=== PATIENT | male | born 1990 | race Caucasian/White ===

== ENCOUNTER 2017-07-05 21:10 | Emergency (ER) | payer OTHER ==
[~2017-07-05] VITALS: Ht 180.3 cm; Wt 68.0 kg
[2017-07-05] MEDS ORDERED: WELLBUTRIN SR150 MG PO (21:16)
[2017-07-05] MEDS ORDERED: IBUPROFEN 800800 M1 PO (22:37)
[2017-07-05] MEDS ORDERED: CLEOCIN HCL150 M1 PO (22:37)
[2017-07-05 22:48] VITALS: BP 134/67
== END 2017-07-05 22:48 | disposition home or self-care (01) ==
LOC: M.ERS 21:10
DX: S61.216A Laceration without foreign body of right little finger without damage to nail, initial encounter (principal); Z91.041 Radiographic dye allergy status; Z91.018 Allergy to other foods; W20.8XXA Other cause of strike by thrown, projected or falling object, initial encounter; Y93.89 Activity, other specified; Y92.89 Other specified places as the place of occurrence of the external cause; Y99.0 Civilian activity done for income or pay

== ENCOUNTER 2018-03-13 06:29 | Emergency (ER) | payer OTHER ==
[~2018-03-13] VITALS: Ht 177.8 cm; Wt 72.6 kg
[~2018-03-13 06:29] MED LIST: CLEOCIN HCL150 M1 PO; IBUPROFEN 800800 M1 PO; WELLBUTRIN SR150 MG PO
[2018-03-13 07:41] VITALS: BP 127/79
== END 2018-03-13 07:42 | disposition home or self-care (01) ==
LOC: M.ERS 06:29
DX: J02.0 Streptococcal pharyngitis (principal); F17.210 Nicotine dependence, cigarettes, uncomplicated; Z91.041 Radiographic dye allergy status; Z91.018 Allergy to other foods

== ENCOUNTER 2018-04-04 12:31 | Emergency (ER) | payer OTHER ==
[~2018-04-04] VITALS: Ht 177.8 cm; Wt 72.6 kg
[2018-04-04 13:37] LABS: ABSOLUTE BASOPHILS 0.1 thou/uL (0.0-0.2); ABSOLUTE EOSINOPHILS 0.3 thou/uL (0.0-0.7); ABSOLUTE LYMPHOCYTES 2.3 thou/uL (0.8-5.3); ABSOLUTE MONOCYTES 0.5 thou/uL (0.0-1.2); ABSOLUTE NEUTROPHILS 5.8 thou/uL (1.6-8.1); BASOPHILS 1.3 %; EOSINOPHILS 2.9 %; LYMPHOCYTES 25.6 %; MCH 28.5 pg (26.0-34.0); MCHC 33.3 g/dL (28.0-37.0); MCV 85.4 fL (80.0-100.0); MONOCYTES 5.1 %; MPV 7.7 fl. (7.2-11.1); NUCLEATED RBCS 0 /100WBC; PLATELET COUNT* 382 thou/uL (150-400); POLYS 65.1 %; RBC 5.27 mil/uL (4.50-6.00); RDW-CV 13.7 % (10.5-14.5); WBC 8.9 thou/uL (4.0-11.0)
[2018-04-04 13:56] LABS: CALCIUM 9.6 mg/dL (8.5-10.1); CREATININE 0.9 mg/dL (0.6-1.3); POTASSIUM 4.2 mmol/L (3.5-5.1)
[2018-04-04 14:00] LABS: ALBUMIN 4.7 g/dL (3.4-5.0); TOTAL BILIRUBIN 0.7 mg/dL (<0.1-1.0)
[2018-04-04 14:01] LABS: URINE BILIRUBIN NEGATIVE (Negative); URINE BLOOD NEGATIVE (Negative); URINE CLARITY CLEAR; URINE COLOR YELLOW; URINE GLUCOSE-RANDOM NEGATIVE (Negative); URINE KETONES NEGATIVE (Negative); URINE LEUKOCYTES-REFLEX NEGATIVE (Negative); URINE NITRITE-REFLEX NEGATIVE (Negative); URINE PROTEIN NEGATIVE (Negative); URINE UROBILINOGEN 0.2 E.U./dl (0.2-1.0)
[2018-04-04 14:16] LABS: TOTAL PROTEIN 8.4 g/dL (6.4-8.2)
[2018-04-04] MEDS ORDERED: CIPRO500 MG PO (15:21)
[2018-04-04 15:35] VITALS: BP 129/61
== END 2018-04-04 15:36 | disposition home or self-care (01) ==
LOC: M.ERS 12:31
PROVIDERS: Nurse Practitioner Family
DX: K52.9 Noninfective gastroenteritis and colitis, unspecified (principal); F17.210 Nicotine dependence, cigarettes, uncomplicated; Z91.041 Radiographic dye allergy status; Z91.018 Allergy to other foods

== ENCOUNTER 2018-11-27 20:40 | Emergency (ER) | payer OTHER ==
[~2018-11-27] VITALS: Ht 177.8 cm; Wt 70.3 kg
[~2018-11-27 20:40] MED LIST changes: +CIPRO500 MG PO
[2018-11-27 22:17] LABS: ABSOLUTE BASOPHILS 0.2 thou/uL (0.0-0.2); ABSOLUTE LYMPHOCYTES 3.4 thou/uL (0.8-5.3); ABSOLUTE MONOCYTES 0.5 thou/uL (0.0-1.2); ABSOLUTE NEUTROPHILS 6.6 thou/uL (1.6-8.1); BASOPHILS 1.5 %; EOSINOPHILS 8.7 %; HEMATOCRIT 40.5 % (42.0-52.0); HEMOGLOBIN 13.3 gm/dL (14.0-18.0); LYMPHOCYTES 29.2 %; MCH 28.2 pg (26.0-34.0); MCHC 32.8 g/dL (28.0-37.0); MONOCYTES 4.3 %; MPV 7.6 fl. (7.2-11.1); NUCLEATED RBCS 0 /100WBC; PLATELET COUNT* 405 thou/uL (150-400); POLYS 56.3 %; RBC 4.71 mil/uL (4.50-6.00); RDW-CV 14.2 % (10.5-14.5); WBC 11.7 thou/uL (4.0-11.0)
[2018-11-27 22:27] LABS: CREATININE 0.7 mg/dL (0.6-1.3)
[2018-11-27] MEDS ORDERED: TRAMADOL 50 MG50 MG PO (22:49)
[2018-11-27] MEDS ORDERED: BACTRIM DS TAB1 EACH PO (22:49)
[2018-11-28 00:56] VITALS: BP 128/66
== END 2018-11-28 00:35 | disposition home or self-care (01) ==
LOC: M.ERS 20:40
PROVIDERS: Nurse Practitioner Psychiatric/Mental Health
DX: S69.92XA Unspecified injury of left wrist, hand and finger(s), initial encounter (principal); L03.012 Cellulitis of left finger; F17.210 Nicotine dependence, cigarettes, uncomplicated; Z91.041 Radiographic dye allergy status; Z88.8 Allergy status to other drugs, medicaments and biological substances; W22.8XXA Striking against or struck by other objects, initial encounter; Y92.89 Other specified places as the place of occurrence of the external cause; Y93.89 Activity, other specified; Y99.8 Other external cause status

== ENCOUNTER 2019-05-13 08:21 | Emergency (ER) | payer OTHER ==
[~2019-05-13] VITALS: Ht 180.3 cm; Wt 72.6 kg
[~2019-05-13 08:21] MED LIST changes: +BACTRIM DS TAB1 EACH PO; +TRAMADOL 50 MG50 MG PO
[2019-05-13] MEDS ORDERED: NORCO 5-325 TA1 EAC1 PO (09:22)
[2019-05-13 10:28] VITALS: BP 121/52
== END 2019-05-13 10:28 | disposition home or self-care (01) ==
LOC: M.ERS 08:21
DX: S92.351A Displaced fracture of fifth metatarsal bone, right foot, initial encounter for closed fracture (principal); Z90.49 Acquired absence of other specified parts of digestive tract; Z91.041 Radiographic dye allergy status; Z91.018 Allergy to other foods; W18.39XA Other fall on same level, initial encounter; Y93.89 Activity, other specified; Y92.89 Other specified places as the place of occurrence of the external cause; Y99.8 Other external cause status

== ENCOUNTER 2019-05-28 17:17 | Emergency (ER) | payer OTHER ==
[~2019-05-28] VITALS: Ht 180.3 cm; Wt 72.6 kg
[~2019-05-28 17:17] MED LIST changes: +NORCO 5-325 TA1 EAC1 PO
[2019-05-28] MEDS ORDERED: IBU800 MG PO (19:25)
[2019-05-28] MEDS ORDERED: NORCO 5-325 TA1 EAC1 PO (19:25)
[2019-05-28 19:43] VITALS: BP 117/86
== END 2019-05-28 19:29 | disposition home or self-care (01) ==
LOC: M.ERS 17:17
DX: S92.354A Nondisplaced fracture of fifth metatarsal bone, right foot, initial encounter for closed fracture (principal); F17.210 Nicotine dependence, cigarettes, uncomplicated; Z90.49 Acquired absence of other specified parts of digestive tract; Z91.018 Allergy to other foods; Z91.041 Radiographic dye allergy status; X58.XXXA Exposure to other specified factors, initial encounter; Y93.89 Activity, other specified; Y92.89 Other specified places as the place of occurrence of the external cause; Y99.8 Other external cause status

== ENCOUNTER 2019-11-21 10:34 | Emergency (ER) | payer OTHER ==
[~2019-11-21] VITALS: Ht 177.8 cm; Wt 72.6 kg
[~2019-11-21 10:34] MED LIST changes: +IBU800 MG PO
[2019-11-21 13:10] LABS: ABSOLUTE BASOPHILS 0.2 thou/uL (0.0-0.2); ABSOLUTE LYMPHOCYTES 1.7 thou/uL (0.8-5.3); ABSOLUTE MONOCYTES 0.8 thou/uL (0.0-1.2); ABSOLUTE NEUTROPHILS 14.2 thou/uL (1.6-8.1); BASOPHILS 0.9 %; EOSINOPHILS 0.3 %; HEMATOCRIT 39.9 % (42.0-52.0); HEMOGLOBIN 13.4 gm/dL (14.0-18.0); LYMPHOCYTES 10.2 %; MCH 29.3 pg (26.0-34.0); MCHC 33.7 g/dL (28.0-37.0); MCV 87.1 fL (80.0-100.0); MONOCYTES 4.5 %; MPV 7.5 fl. (7.2-11.1); NUCLEATED RBCS 0 /100WBC; PLATELET COUNT* 352 thou/uL (150-400); POLYS 84.1 %; RBC 4.58 mil/uL (4.50-6.00); RDW-CV 13.5 % (10.5-14.5); WBC 16.9 thou/uL (4.0-11.0)
[2019-11-21 13:18] LABS: CALCIUM 8.9 mg/dL (8.5-10.1); CREATININE 0.9 mg/dL (0.6-1.3); POTASSIUM 3.6 mmol/L (3.5-5.1)
[2019-11-21 13:22] LABS: ALBUMIN 4.3 g/dL (3.4-5.0); TOTAL BILIRUBIN 0.4 mg/dL (<0.1-1.0); TOTAL PROTEIN 7.4 g/dL (6.4-8.2)
[2019-11-21] MEDS ORDERED: NORCO 5-325 TA1 EAC1 PO (14:10)
[2019-11-21 14:28] VITALS: BP 115/60
== END 2019-11-21 14:29 | disposition home or self-care (01) ==
LOC: M.ERS 10:34
PROVIDERS: Emergency Medicine Emergency Medical Services
DX: S32.029A Unspecified fracture of second lumbar vertebra, initial encounter for closed fracture (principal); S32.039A Unspecified fracture of third lumbar vertebra, initial encounter for closed fracture; F17.210 Nicotine dependence, cigarettes, uncomplicated; R06.02 Shortness of breath; M25.552 Pain in left hip; F12.10 Cannabis abuse, uncomplicated; Z88.8 Allergy status to other drugs, medicaments and biological substances; Z90.49 Acquired absence of other specified parts of digestive tract; W17.89XA Other fall from one level to another, initial encounter; Y93.89 Activity, other specified; Y92.89 Other specified places as the place of occurrence of the external cause; Y99.8 Other external cause status

== ENCOUNTER 2020-06-22 10:01 | Emergency (ER) | payer MEDICAID ==
[~2020-06-22] VITALS: Ht 177.8 cm; Wt 76.2 kg
[2020-06-22 10:40] LABS: ABSOLUTE BASOPHILS 0.1 thou/uL (0.0-0.2); ABSOLUTE EOSINOPHILS 0.3 thou/uL (0.0-0.7); ABSOLUTE MONOCYTES 0.5 thou/uL (0.0-1.2); BASOPHILS 0.9 %; EOSINOPHILS 3.3 %; HEMATOCRIT 43.1 % (42.0-52.0); HEMOGLOBIN 14.6 gm/dL (14.0-18.0); LYMPHOCYTES 22.9 %; MCH 29.7 pg (26.0-34.0); MCHC 33.9 g/dL (28.0-37.0); MCV 87.7 fL (80.0-100.0); MONOCYTES 5.5 %; MPV 7.1 fl. (7.2-11.1); NUCLEATED RBCS 0 /100WBC; PLATELET COUNT* 363 thou/uL (150-400); POLYS 67.4 %; RBC 4.91 mil/uL (4.50-6.00); RDW-CV 14.4 % (10.5-14.5); WBC 8.9 thou/uL (4.0-11.0)
[2020-06-22] MEDS ORDERED: ONDANSETRON HCL4 M2 PO (10:42)
[2020-06-22] MEDS ORDERED: HYDROCODON-ACE1 EAC7 PO (10:42)
[2020-06-22] MEDS ORDERED: IBUPROFEN 800800 M1 PO (10:42)
[2020-06-22 10:53] LABS: CALCIUM 9.1 mg/dL (8.5-10.1); POTASSIUM 4.2 mmol/L (3.5-5.1)
[2020-06-22 10:57] LABS: TOTAL BILIRUBIN 0.1 mg/dL (<0.1-1.0); TOTAL PROTEIN 7.4 g/dL (6.4-8.2)
[2020-06-22 11:10] LABS: URINE BILIRUBIN NEGATIVE (Negative); URINE BLOOD NEGATIVE (Negative); URINE CLARITY CLEAR; URINE COLOR YELLOW; URINE GLUCOSE-RANDOM NEGATIVE (Negative); URINE KETONES NEGATIVE (Negative); URINE LEUKOCYTES-REFLEX NEGATIVE (Negative); URINE NITRITE-REFLEX NEGATIVE (Negative); URINE PROTEIN NEGATIVE (Negative); URINE SPECIFIC GRAVITY <= 1.005 (1.005-1.030); URINE UROBILINOGEN 0.2 E.U./dl (0.2-1.0)
[2020-06-22 11:58] VITALS: BP 121/67
== END 2020-06-22 11:58 | disposition home or self-care (01) ==
LOC: M.ERS 10:01
PROVIDERS: Nurse Practitioner Family
DX: K40.90 Unilateral inguinal hernia, without obstruction or gangrene, not specified as recurrent (principal); R91.1 Solitary pulmonary nodule; F17.210 Nicotine dependence, cigarettes, uncomplicated; Z91.018 Allergy to other foods; Z91.041 Radiographic dye allergy status

== ENCOUNTER 2020-11-30 10:55 | Emergency (ER) | payer MEDICAID ==
[~2020-11-30] VITALS: Ht 177.8 cm; Wt 70.3 kg
[~2020-11-30 10:55] MED LIST changes: +HYDROCODON-ACE1 EAC7 PO; +ONDANSETRON HCL4 M2 PO
[2020-11-30] MEDS ORDERED: NEURONTIN300 MG PO (11:10)
[2020-11-30] MEDS ORDERED: TIZANIDINE HCL2 M1 PO (11:10)
[2020-11-30] MEDS ORDERED: FLOVENT DISKUS50 MCG (11:10)
[2020-11-30] MEDS ORDERED: CHANTIX0.5 MG PO (11:11)
[2020-11-30] MEDS ORDERED: INHALER (11:11)
[2020-11-30] MEDS ORDERED: NORCO5 PO (11:34)
[2020-11-30] MEDS ORDERED: NAPROSYN500 MG PO (11:34)
[2020-11-30 11:42] VITALS: BP 136/67
== END 2020-11-30 11:43 | disposition home or self-care (01) ==
LOC: M.ERS 10:55
DX: G89.29 Other chronic pain (principal); M54.5 Low back pain; F17.210 Nicotine dependence, cigarettes, uncomplicated; Z91.041 Radiographic dye allergy status; Z91.018 Allergy to other foods; Z90.49 Acquired absence of other specified parts of digestive tract

== ENCOUNTER 2021-03-07 07:53 | Emergency (ER) | payer OTHER, MEDICAID ==
[~2021-03-07] VITALS: Ht 177.8 cm; Wt 72.6 kg
[~2021-03-07 07:53] MED LIST changes: +CHANTIX0.5 MG PO; +FLOVENT DISKUS50 MCG; +INHALER; +NAPROSYN500 MG PO; +NEURONTIN300 MG PO; +NORCO5 PO; +TIZANIDINE HCL2 M1 PO
[2021-03-07] MEDS ORDERED: GABAPENTIN100 MG PO (08:07)
[2021-03-07] MEDS ORDERED: SINGULAIR 10 MG10 M1 PO (08:07)
[2021-03-07] MEDS ORDERED: ELIQUIS5 MG PO (08:07)
[2021-03-07 08:17] VITALS: BP 121/70
== END 2021-03-07 08:18 | disposition home or self-care (01) ==
LOC: M.ERS 07:53
DX: T14.8XXA Other injury of unspecified body region, initial encounter (principal); F17.210 Nicotine dependence, cigarettes, uncomplicated; Z90.49 Acquired absence of other specified parts of digestive tract; Z79.899 Other long term (current) drug therapy; Z91.041 Radiographic dye allergy status; Z91.02 Food additives allergy status; V87.7XXA Person injured in collision between other specified motor vehicles (traffic), initial encounter; Y93.89 Activity, other specified; Y92.89 Other specified places as the place of occurrence of the external cause; Y99.8 Other external cause status